=== PATIENT | female | born 1945 | race Caucasian/White ===

== ENCOUNTER 2020-03-16 17:41 | Outpatient (CLI) | payer MEDICARE, BC, SELFPAY ==
--- NOTE | ~2020-03-16 | XR_ITS ---
EXAMINATION: XR knee RT min 4V DATE: 03/16/2020 18:40 INDICATION: Right knee pain. TECHNIQUE: 4 views of right knee were obtained. COMPARISON: None. FINDINGS: Bone alignment is normal. No fracture. There is severe osteoarthritis of lateral compartmen t and mild osteoarthritis of medial and patellofemoral compartments. There is a small knee joint effu jaiden. IMPRESSION: 1. Severe right knee osteoarthritis. 2. Small right knee joint effusion. Reviewed, dictated and finalized at location A.
--- NOTE | ~2020-03-16 | XR_ITS ---
EXAMINATION: XR ankle RT min 3V DATE: 03/16/2020 18:41 INDICATION: Right ankle pain. TECHNIQUE: 4 views of right ankle were obtained. COMPARISON: None. FINDINGS: Bone alignment is normal. No fracture. There is mild midfoot osteoarthritis. There is an en thesophyte at plantar aspect of calcaneal tuberosity. There is ankle soft tissue swelling. IMPRESSION: 1. Mild midfoot osteoarthritis. Reviewed, dictated and finalized at location A.
== END 2020-03-16 17:42 | disposition home or self-care (01) ==
PROVIDERS: PCP Family Medicine; Visit Provider Family Medicine
DX: M17.11 Unilateral primary osteoarthritis, right knee (principal); M25.461 Effusion, right knee; M19.071 Primary osteoarthritis, right ankle and foot
CPT/HCPCS: 73564; 73610

== ENCOUNTER 2020-08-29 08:30 | Outpatient (CLI) | payer MEDICARE, BC, SELFPAY | END 2020-08-29 08:31 | disposition home or self-care (01) | LOC: ANHCOVIDVC 08:31 | PROVIDERS: PCP Family Medicine | DX: Z23 Encounter for immunization (principal) | CPT/HCPCS: 0001A; 91300 ==

== ENCOUNTER 2020-09-19 08:28 | Outpatient (CLI) | payer MEDICARE, BC, SELFPAY | END 2020-09-19 08:29 | disposition home or self-care (01) | LOC: ANHCOVIDVC 08:28 | PROVIDERS: PCP Family Medicine | DX: Z23 Encounter for immunization (principal) | CPT/HCPCS: 0002A; 91300 ==

== ENCOUNTER 2022-02-07 12:12 | Outpatient (CLI) | payer MEDICARE, BC, SELFPAY ==
[2022-02-07 21:02] LABS: Appearance Urine Cloudy (Clear); Bilirubin Urine Negative (Negative); Blood Urine Negative (Negative); Color Urine Yellow (Yellow); Glucose Urine UA Negative (Negative); Ketones Urine Negative (Negative); Leukocyte Esterase Ur 2+ LEU/UL (NEGATIVE); Nitrate Urine Negative (Negative); Protein Urine Negative (Negative); Specific Grav Ur 1.025 (1.001-1.035); Urobilinogen Urine 0.2 mg/dL (<2.0)
[2022-02-07 21:13] LABS: Bacteria Urine Trace /hpf; Mucus Urine Rare /lpf; RBC Urine 0-2 /hpf (0-2); Squamous Epithelial Cell Urine Many /hpf (Few)
[2022-02-07 21:20] LABS: Add Urine Microscopic? YES
== END 2022-02-07 12:13 | disposition home or self-care (01) ==
LOC: ANHGOSHLAB 12:16
PROVIDERS: PCP Family Medicine; Visit Provider Family Medicine
DX: R39.9 Unspecified symptoms and signs involving the genitourinary system (principal)
CPT/HCPCS: 81001

== ENCOUNTER 2022-06-06 13:48 | Outpatient (CLI) | payer MEDICARE, BC, SELFPAY ==
[2022-06-06 19:17] LABS: Kit Draw Collected
== END 2022-06-06 13:49 | disposition home or self-care (01) ==
LOC: ANHGOSHLAB 13:54
PROVIDERS: PCP Family Medicine; Visit Provider Family Medicine
DX: E03.9 Hypothyroidism, unspecified (principal); I10 Essential (primary) hypertension; Z79.899 Other long term (current) drug therapy; R60.9 Edema, unspecified
CPT/HCPCS: 36415

== ENCOUNTER 2022-12-11 14:22 | Outpatient (CLI) | payer MEDICARE, BC, SELFPAY ==
--- NOTE | 2022-12-11 14:30 | ECHO_ITS ---
Patient Info Name: Alina Gamino Age: 77 years : 1945 Gender: Female Ht: 69 in Wt: 180 lbs BSA: 2.01 m2 HR: 76 bpm BP: 167 / 92 mmHg Technical Quality: Good Exam Date: 12/11/2022 2:41 PM Exam Location: [facility] Patient Status: Outpatient Admit Date: 12/11/2022 Staff Ordering Physician: Jc Shipley MD Commercial Loan Officer: Chelsea Crockett RDCS Attending Provider: Jc Shipley MD Referring Physician: Violetta BALDERRAMA; Exam Type: CA echo doppler color flow Study Info Indications I10 - Essential (primary) hypertension Complete two-dimensional, color flow and Doppler transthoracic echocardiogram is performed. Summary 1. Complete two-dimensional, color flow and Doppler transthoracic echocardiogram is performed. 2. Left ventricular chamber dimension is normal. 3. Left ventricular systolic function is normal, estimated at 55-60%. 4. The left ventricular diastolic function is grade I diastolic dysfunction. 5. Global longitudinal strain is abnormal at -14.6%. 6. Left atrial chamber dimension is mildly enlarged. 7. There is mild aortic valve sclerosis. 8. There is trace mitral valve regurgitation. 9. No pulmonary hypertension, estimated pulmonary arterial systolic pressure is 34 mmHg. Left Ventricle Tissue doppler is not performed. Global longitudinal strain is abnormal at -14.6%. Left ventricular chamber dimension is normal. Left ventricular systolic function is normal, estimated at 55-60%. The left ventricular diastolic function is grade I diastolic dysfunction. Right Ventricle Right ventricular systolic function is normal and with normal TAPSE 2.4 cm. Right ventricular chamber dimension is normal. Left Atria Left atrial chamber dimension is mildly enlarged. Right Atria Right atrial chamber dimension is normal. Aortic Valve The aortic valve is trileaflet. There is mild aortic valve sclerosis. There is no aortic valve stenosis. There is no aortic valve regurgitation. Pulmonic Valve There is no pulmonic regurgitation. Mitral Valve There is no mitral valve stenosis. There is trace mitral valve regurgitation. Tricuspid Valve There is no tricuspid valve regurgitation. No pulmonary hypertension, estimated pulmonary arterial systolic pressure is 34 mmHg. Pericardium/Pleural There is no pericardial effusion. Inferior Vena Cava Normal inferior vena cava with >50% collapse upon inspiration consistent with normal right atrial pressure, 5 mmHg. Aorta The aortic root size at the sinus of Valsalva is normal. Left Ventricular Outflow Tract Name Value Normal LVOT 2D LVOT Diameter 1.9 cm LVOT Doppler LVOT Peak Gradient 4 mmHg LVOT Mean Gradient 3 mmHg LVOT VTI 23 cm LVOT VTI/AV VTI Ratio 0.9 LVOT Stroke Volume 63 ml LVOT CO 4.5 l/min LVOT CI 2.3 l/min/m2 Pulmonic Valve Name Value Normal
== END 2022-12-11 14:23 | disposition home or self-care (01) ==
LOC: ANHCARD 14:25
PROVIDERS: PCP Family Medicine; Visit Provider Family Medicine
DX: I10 Essential (primary) hypertension (principal); R01.1 Cardiac murmur, unspecified
CPT/HCPCS: 93306

== ENCOUNTER 2023-02-20 01:05 | Day surgery (SDC) | payer MEDICARE, BC, SELFPAY ==
[2023-02-07 14:37] VITALS: BMI 27.1
--- NOTE | 2023-02-19 13:44 | P.PNAN_ITS ---
Anes - Initial Pre Proc Eval Procedure: Operation Date: 02/20/23 11:00 Proposed Procedures p Colonoscopy - Seth Duarte MD Date/Time: 02/19/23 13:44 Surgeon: Seth Duarte MD Pre Op Diagnosis: constipation Patient Data Age: 77 Gender: F Height: 1.73 m Weight: 81 kg Allergies Allergy/AdvReac Type Severity Reaction Status Date / Time hydrochlorothiazide [Dyazide] AdvReac Unknown Nausea Verified 02/20/23 09:39 Sulfa (Sulfonamide AdvReac Unknown Nausea Verified 02/20/23 09:39 Antibiotics) triamterene AdvReac Unknown Nausea Verified 02/20/23 09:39 Home Medications Medication Instructions Recorded Confirmed Type omeprazole 10 mg capsule,delayed 10 mg PO DAILY 07/06/22 02/07/23 History release sertraline 50 mg tablet (Zoloft) 50 mg PO DAILY #90 tabs 01/16/23 02/07/23 Rx triamcinolone acetonide 0.1 % 1 applic topical QID #80 grams 01/16/23 02/07/23 Rx topical cream levothyroxine 50 mcg tablet 50 mcg PO DAILY 02/07/23 02/07/23 History loratadine 10 mg tablet 10 mg PO DAILY PRN Allergy Symptoms 02/07/23 02/07/23 History Patient hx anesthesia problems: none Family hx anesthesia problems: none Results Review: All pre-operative results and documents have been reviewed as part of the pre- operative evaluation. [facility] Past Medical History Medical History (Updated 02/19/23 @ 13:44 by Scot Farrell DO) Chronic GERD Enterocolitis Essential (primary) hypertension Hypothyroidism (acquired) Surgical History Surgical History History of total right knee replacement Family History Family History Mother Family history of pancreatic cancer Father Family history of lung cancer Sibling Family history of lung cancer Social History Social History Smoking status: Never smoker Alcohol intake: current Alcohol use details: rarely Substance use type: does not use Lack of Transportation: No Lack of Food: Never True Current Housing: I Have Housing Concerned About Future Housing: No Difficulty Paying Gas/Electric Bills: No Difficulty Paying for Meds: No Currently Unemployed: No Education: High School Diploma/GED Difficulty w/ Childcare or Family Care: No Living arrangements: with family Spiritual care concerns: No Anes - Eval Final PreProcedure Day of Procedure 02/19/23 13:44 Patient weight: overweight Heart: regular rate and rhythm Lungs: clear to auscultation Airway: Mallampati scale class II Neurological: alert and oriented Last oral intake: >/= 8 hours ASA classification: II Emergent: no Anesthetic plan: proceed Anesthesia type and monitoring: general GIVS and standard monitoring Results Review: All pre-operative results and documents have been reviewed as part of the pre- operative evaluation. Informed Consent: The patient's anesthetic plan and its attendant risks and benefits were discussed with the patient/family/POA. Questions were solicited and answers provided to the satisfaction of the patient/family/POA.
--- NOTE | 2023-02-19 15:48 | PM.HPGS ---
History of Present Illness History of Present Illness Consent: Risks, benefits, and alternatives have been discussed and questions answered. Patient agrees to proceed with procedure. Chief complaint: constipation Narrative: Alina Gamino is a 77 year old female referred for colonoscopy because of a change in bowel habits. She has irregular bowel movements which can vary from being very hard small balls, to lose or soft and skinny. Her last colonoscopy was about 40 years ago. She does not see blood in her stools. Review of Systems Review of Systems: All systems reviewed & are unremarkable except as noted in HPI and below PMFSH Past Medical History Medical History Chronic GERD Enterocolitis Essential (primary) hypertension Hypothyroidism (acquired) Surgical History Surgical History History of total right knee replacement Family History Family History Mother Family history of pancreatic cancer Father Family history of lung cancer Sibling Family history of lung cancer Social History Social History Smoking status: Never smoker Alcohol intake: current Alcohol use details: rarely Substance use type: does not use Lack of Transportation: No Lack of Food: Never True Current Housing: I Have Housing Concerned About Future Housing: No Difficulty Paying Gas/Electric Bills: No Difficulty Paying for Meds: No Currently Unemployed: No Education: High School Diploma/GED Difficulty w/ Childcare or Family Care: No Living arrangements: with family Spiritual care concerns: No Meds Home Medications and Allergies Home Medications Medication Instructions Recorded Confirmed Type omeprazole 10 mg capsule,delayed 10 mg PO DAILY 07/06/22 02/07/23 History release sertraline 50 mg tablet (Zoloft) 50 mg PO DAILY #90 tabs 01/16/23 02/07/23 Rx triamcinolone acetonide 0.1 % 1 applic topical QID #80 grams 01/16/23 02/07/23 Rx topical cream levothyroxine 50 mcg tablet 50 mcg PO DAILY 02/07/23 02/07/23 History loratadine 10 mg tablet 10 mg PO DAILY PRN Allergy Symptoms 02/07/23 02/07/23 History Allergies Allergy/AdvReac Type Severity Reaction Status Date / Time hydrochlorothiazide [Dyazide] AdvReac Unknown Nausea Verified 02/20/23 09:39 Sulfa (Sulfonamide AdvReac Unknown Nausea Verified 02/20/23 09:39 Antibiotics) triamterene AdvReac Unknown Nausea Verified 02/20/23 09:39 Exam Const: General: alert Orientation/consciousness: patient oriented x3 Resp: Auscultation: clear to auscultation bilaterally Cardio: Rhythm: regular rhythm GI: GI Palp: Yes Soft to palpation and No Tenderness to palpation present (GI) Neuro: General: patient oriented x3 Assessment and Plan Assessment and plan (1) Constipation, chronic: Code(s): K59.09 - Other constipation Status: Acute Assessment and Plan: Colonoscopy with possible biopsy or polypectomy or cautery or injection of substances.
[2023-02-20 09:40] VITALS: BP 163/70; PULSE 71; RESP 18; TEMP 36.4; O2SAT 99
[2023-02-20] MEDS: LACTATED RINGERS 1,000 ML 150 ML IV CONT (09:50)
[2023-02-20 11:11] VITALS: BP 113/68; PULSE 75; RESP 21; O2SAT 96
[2023-02-20 11:21] VITALS: BP 140/83; PULSE 80; RESP 19; O2SAT 96
[2023-02-20 11:31] VITALS: BP 160/84; PULSE 71; RESP 18; O2SAT 100
== END 2023-02-20 11:45 | disposition home or self-care (01) ==
PROVIDERS: PCP Family Medicine; Visit Provider Internal Medicine Gastroenterology
PROC: 0DJD8ZZ Inspection of Lower Intestinal Tract, Via Natural or Artificial Opening Endoscopic (ICD-10-PCS; CPT 45378; principal; 2023-02-20 11:00)
DX: Z12.11 Encounter for screening for malignant neoplasm of colon (principal); D12.0 Benign neoplasm of cecum; D12.4 Benign neoplasm of descending colon; K57.30 Diverticulosis of large intestine without perforation or abscess without bleeding; K64.8 Other hemorrhoids; K59.09 Other constipation; I10 Essential (primary) hypertension; E03.9 Hypothyroidism, unspecified; K21.9 Gastro-esophageal reflux disease without esophagitis
CPT/HCPCS: 45385; 88305; J2704; J7120

== ENCOUNTER 2025-02-09 11:00 | Outpatient (CLI) | payer MEDICARE, BC, SELFPAY ==
--- NOTE | ~2025-02-09 | US_ITS ---
EXAMINATION: US venous doppler [facility] DATE: 02/09/2025 12:14 INDICATION: Left lower limb pain TECHNIQUE: Grayscale ultrasound images without and with compression and Doppler ultrasound images of the left lower extremity veins were obtained. COMPARISON: None. FINDINGS: The visualized portions of left common femoral vein, profunda (deep) femoral vein, femoral vein, popl iteal vein, peroneal veins, posterior tibial veins and greater saphenous vein outflow are patent. 4.8 x 1.1 x 2.1 cm anechoic Anderson's cyst at the popliteal fossa. IMPRESSION: 1. No deep venous thrombosis in the left lower limb. 2. Small left Anderson's cyst. Reviewed, dictated and finalized at location A.
== END 2025-02-09 11:01 | disposition home or self-care (01) ==
PROVIDERS: PCP Family Medicine; Visit Provider Nurse Practitioner Family
DX: M79.89 Other specified soft tissue disorders (principal); M71.22 Synovial cyst of popliteal space [Baker], left knee
CPT/HCPCS: 93971